=== PATIENT | male | born 1995 | race Caucasian/White ===

== ENCOUNTER 2018-12-04 14:48 | Emergency (ER) | payer SELFPAY ==
[2018-12-04] MEDS ORDERED: HYDROMORPHONE HCL 2 MG/ML VIAL IVP ONE ×2 (15:54→16:50)
[2018-12-04] MEDS ORDERED: ONDANSETRON HCL IV 4 MG/2 ML VIAL IVP ONE (15:54)
[2018-12-04] MEDS ORDERED: CEFAZOLIN 1 Gram 1 GM/50 ML BAG IVPB ONE (16:36)
[2018-12-04] MEDS ORDERED: Diph,Pert(Acell),Tet Vac 0.5 ML SYR IM ONE (16:36)
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
== END 2018-12-04 17:13 | disposition short-term general hospital (02) ==
LOC: ER 14:48
DX: S91.042A Puncture wound with foreign body, left ankle, initial encounter (principal); W45.0XXA Nail entering through skin, initial encounter; W29.4XXA Contact with nail gun, initial encounter; Y99.0 Civilian activity done for income or pay
CPT/HCPCS: 90715; 96365; 96375; 99285; J2405